=== PATIENT | female | born 1935 | race Caucasian/White ===

== ENCOUNTER 2024-06-25 10:55 | Inpatient (IN) | payer MEDICARE, BC ==
[~2024-06-25] VITALS: Ht 180.3 cm; Wt 56.5 kg
[~2024-06-25 10:55] MED LIST: B COMPLEX #11 TA1 PO; CALCIUM 600MG+D1 TAB PO; ESTRACE0.1 MG/GM VG; EXCEDRIN1 TAB PO; LASIX 20MG TABL20 MG PO; LEVBID0.375 MG PO; MIRTAZAPINE7.5 MG PO; MULTI VITAMINS1 TAB PO; NATURAL POTASS595 MG PO; PRILOTC; PROLIA60 MG/ML SQ; ULTRAM 50MG TAB50 MG PO; VITAMIN C500 MG PO; ZYRTEC 10MG10 MG PO
[2024-06-25 12:12] LABS: ALBUMIN 3.6 g/dL (3.4-4.8); BILIRUBIN,TOTAL 1.1 mg/dL (0.2-1.2); CALCIUM 9.2 mg/dL (8.4-10.2); CREATININE, serum 1.31 mg/dL (0.57-1.11); POTASSIUM 3.5 mEq/L (3.5-4.5); TOTAL PROTEIN 7.5 g/dl (6.2-8.1)
[2024-06-25 12:14] LABS: HEMOGLOBIN 11.6 g/dl (12.5-16.0); MEAN CELL VOLUME 101 fl (80.0-100.0); MEAN CORPUSCULAR HEMOGLOBIN 34 pg (27-31); MEAN CORPUSCULAR HGB CONC 34 g/dl (33.0-37.0); MEAN PLATELET VOLUME 10.8 fl (7.4-10.4); PLATELET COUNT 108 K/mm3 (130-400); RED BLOOD COUNT 3.37 M/mm3 (4.10-5.30); REDCELL DISTRIBUTION WIDTH-CV 17.8 % (11.5-14.5)
[2024-06-25] MEDS ORDERED: NS 1,000 ML IV ONE (12:30)
[2024-06-25] MEDS ORDERED: cefTRIAXone 1 G in Water For Injection,Sterile 10 ML IV ONE (12:30)
[2024-06-25 12:50] LABS: ANISOCYTOSIS 1+; BAND 32 % (0-10); LYMPHOCYTE 2 % (20.0-51.0); NEUTROPHILS 65 % (42.0-75.2); NUCLEATED RED BLOOD CELL 1 (0-6); PLATELET ESTIMATE NORMAL (NORMAL)
[2024-06-25 12:51] LABS: OVALOCYTES 1+
[2024-06-25 12:52] LABS: PH 5.5 (5.0-8.5); URINE APPEARANCE TURBID (CLEAR/HAZY); URINE BLOOD 3+ (NEGATIVE); URINE COLOR Dark Yellow (YELLOW); URINE GLUCOSE NEGATIVE (NEGATIVE); URINE KETONE NEGATIVE (NEGATIVE); URINE NITRATE NEGATIVE (NEGATIVE); URINE PROTEIN(semi-quant) 2+ (NEGATIVE); URINE UROBILINOGEN 0.2 E.U/dL (0.2-1.0)
[2024-06-25] MEDS ORDERED: Ondansetron 4 MG/2 ML VIAL IV ONE (13:15)
[2024-06-25 13:22] LABS: URINE BACTERIA MANY /hpf (NONE SEEN); URINE RBC >50 /hpf (0-2); URINE WBC >50 /hpf (0-2)
[2024-06-25 13:23] LABS: COLLECTION METHOD CLEAN CATCH
[2024-06-25] MEDS ORDERED: Ondansetron 4 MG/2 ML VIAL IV PRN (14:00)
[2024-06-25] MEDS ORDERED: Lidocaine 4% Topical Patch TP SCH (14:00)
[2024-06-25] MEDS ORDERED: HYOSCYAMINE 0.375 MG PO PRN (14:00)
[2024-06-25] MEDS ORDERED: Polyethylene Glycol 3350 17 GM PDS PO PRN (14:00)
[2024-06-25] MEDS ORDERED: NS 1,000 ML IV SCH (14:00)
[2024-06-25] MEDS ORDERED: cefTRIAXone 1 G in Water For Injection,Sterile 10 ML IV SCH (14:00)
[2024-06-25] MEDS ORDERED: Docusate Sodium 100 MG CAP PO PRN (14:00)
[2024-06-25] MEDS ORDERED: Acetaminophen 325 MG TAB PO PRN (14:00)
[2024-06-25] MEDS ORDERED: traMADol 50 MG TAB PO SCH (14:00)
[2024-06-25 15:30] VITALS: BP 110/56; PULSE 95; TEMP 101.7
--- NOTE | 2024-06-25 15:30 | NUR ---
arrived n unit per stretcher, alert but is confused at this time and doesn not even really follow commands, daughter at bedside
[2024-06-25] MEDS ORDERED: Polyethylene Glycol 3350 17 GM PDS PO SCH (15:48)
[2024-06-25] MEDS ORDERED: Heparin 5,000 UNITS/ML 1 ML VIAL SQ SCH (16:00)
[2024-06-25] MEDS ORDERED: PROBIOTIC BLEN1 EACH PO (16:07)
[2024-06-25] MEDS ORDERED: TAMOXIFEN CITRA20 MG PO (16:08)
[2024-06-25] MEDS ORDERED: MIRTAZAPINE7.5 MG PO (16:08)
[2024-06-25] MEDS ORDERED: COLESTID 1GM1 G PO (16:09)
[2024-06-25 16:38] VITALS: BP_SYST 110
--- NOTE | 2024-06-25 16:39 | NUR ---
Juan F, RN nursing supervisor shellfish farming notified of MEWS score of 3, all vitals relayed to her
--- NOTE | 2024-06-25 17:00 | NUR ---
physical assessment completed, see intervention for further info, has 1cm stage II pressure ulcer to left buttock, this was marked and pictures taken and sent to [facility], mepilex dressing placed, has skin tears open on left lower extremity and aquacel dressing placed
--- NOTE | 2024-06-25 17:30 | NUR ---
appears to be sleeping, admission assessment completed by daughter
--- NOTE | 2024-06-25 18:59 | NUR ---
sitting up eating supper, bedside shift report given to AUBREE Gross
[2024-06-25 20:00] VITALS: BP_SYST 96
[2024-06-25] MEDS ORDERED: Docusate Sodium 100 MG CAP PO SCH (21:00)
[2024-06-25] MEDS ORDERED: Famotidine 20 MG TAB PO SCH (21:00)
[2024-06-25 21:47] VITALS: BP 96/45; PULSE 68; TEMP 96.4
--- NOTE | 2024-06-25 23:08 | NUR ---
patient lyin gin bed, alert and oriented x4, with occasional forgetfullness. denies chest pain and shortness of breath. IV in LAC is patent, site CDI with NS running at 125 ml/hr. pt denies pain and refuses scheduled tramadol at this time. small open ulcer with blanchable surrounding redness noted on left upper buttock with mepilex dressing applied, right mccord skin tear with mepilex dressing, all CDI. frequent repositioning interventions in place, pt agreeable. lidocaine patch to lower back. fall precautions in place, call light within reach. pt with slight diaphoresis. pt has no further needs, questions or concerns at this time.
[2024-06-26] VITALS (162 sets, daily range): BP systolic 76–145; BP diastolic 36–72; PULSE 69–88; TEMP 97.5–102.4; O2SAT 74–100
[2024-06-26 07:06] LABS: HEMOGLOBIN 10.8 g/dl (12.5-16.0); MEAN CELL VOLUME 100 fl (80.0-100.0); MEAN CORPUSCULAR HEMOGLOBIN 34 pg (27-31); MEAN CORPUSCULAR HGB CONC 34 g/dl (33.0-37.0); MEAN PLATELET VOLUME 11.6 fl (7.4-10.4); PLATELET COUNT 94 K/mm3 (130-400); RED BLOOD COUNT 3.18 M/mm3 (4.10-5.30); REDCELL DISTRIBUTION WIDTH-CV 18.2 % (11.5-14.5)
[2024-06-26 07:16] LABS: HEMATOCRIT 31.9 % (37.0-47.0)
[2024-06-26 07:26] LABS: CALCIUM 8.1 mg/dL (8.4-10.2); CREATININE, serum 1.16 mg/dL (0.57-1.11); POTASSIUM 3.6 mEq/L (3.5-4.5)
--- NOTE | 2024-06-26 08:00 | NUR ---
PATIENT ALERT AND ORIENTED X4. PATIENT REPORTS PAIN 9/10. PATIENT ON 2L 02 N/C. PATIENT FAMILY AT BEDSIDE. FLUIDS INFUSING PER EMAR. CALL LIGHT WITHIN REACH. BED ALARM ON.
[2024-06-26 08:18] LABS: ANISOCYTOSIS 1+; BAND 28 % (0-10); LYMPHOCYTE 7 % (20.0-51.0); NEUTROPHILS 64 % (42.0-75.2); PLATELET ESTIMATE DECREASED (NORMAL)
[2024-06-26 08:19] LABS: OVALOCYTES 1+
[2024-06-26 08:20] LABS: BURR CELLS 2+
[2024-06-26] MEDS ORDERED: NS 500 ML IV SCH ×2 (10:00→11:15)
--- NOTE | 2024-06-26 10:00 | NUR ---
patient alert and oriented x3. patient on 2l /. patient blood pressure is low. hospitalist notified. bolus will be given. patient denies dizziness or headaches, denies soa. call light within reach. bed at lowest positon.
--- NOTE | 2024-06-26 10:32 | NUR ---
Initial visit; Patient had visitors and was happy to say that she is feeling great and thanked Plastic Cnc Machine Operator for offering God's blessings and for saying that she looked great. Plastic Cnc Machine Operator wished her well in hopes she will be discharged soon.
--- NOTE | 2024-06-26 11:11 | NUR ---
SW was provided with copy of patient's living will and DPOA documents from daughter. Advanced Directives placed on chart.
--- NOTE | 2024-06-26 11:15 | NUR ---
patient alert and oriented x3. patient having low blood pressures and denies dizziness, soa, frausto at this time. patient call light within reach. bed alarm on.
[2024-06-26] MEDS ORDERED: NS 1,000 ML IV SCH (12:15)
[2024-06-26] MEDS ORDERED: cefTRIAXone 1 G in Water For Injection,Sterile 10 ML IV SCH (12:30)
--- NOTE | 2024-06-26 12:50 | NUR ---
patient reports ARITA has gone away. patient remains with low blood pressure after bolus x2 and fluids infusing. patient will be transfer to ICU.
--- NOTE | 2024-06-26 12:55 | NUR ---
Forest Ranger Technician met with patient to discuss discharge planning. Patient lives at [facility] in [facility] and sees Dr. Lawler for primary care. Patient gets medications from [facility] with no difficulties. Patient uses a walker for ambulation and is independent with ADLS. Patient is currently on oxygen, however does not use it at baseline. Patient stated her daughter, Esthela (ph#[phone]) is her DPOA-HC and will be returning to the hospital soon. SW discussed discharge planning and patient stated she is open to either returning to her [place] apartment or going to [facility] if rehab is recommended. SW attempted to call Esthela and left a message. SW reviewed PT/OT evaluations which recommend SNF. CARMEN contacted Yaritza at [facility] and faxed referral. Discharge Plan: [facility] SNF
[2024-06-26] MEDS ORDERED: LR 1,000 ML IV ONE (13:00)
--- NOTE | 2024-06-26 13:30 | NUR ---
patient taken to ICU. report given at bedside. patient IV discontinued/ damaged during transport. patient nurse at bedside.
--- NOTE | 2024-06-26 13:40 | NUR ---
Arrived to the unit from the medical floor. Patient alert and oriented upon arrival. Cooperative with cares. Patient slightly hypotensive, however remains asymptomatic. LR bolus initiated per hospitalist orders. Call light left within reach.
--- NOTE | 2024-06-26 19:30 | NUR ---
Recevied report from Seema Botello RN. Pt is resting in bed with bed in low position and bed alarms on and call light within reach. Vitals are stable at this time. IVF's are running at this time. Will continue with pt care.
[2024-06-27] VITALS (47 sets, daily range): BP systolic 99–144; BP diastolic 61–86; PULSE 78–96; TEMP 98.4–99.5; O2SAT 67–99
[2024-06-27 05:05] LABS: MEAN CELL VOLUME 98 fl (80.0-100.0); MEAN CORPUSCULAR HGB CONC 35 g/dl (33.0-37.0); PLATELET COUNT 88 K/mm3 (130-400); RED BLOOD COUNT 2.56 M/mm3 (4.10-5.30); REDCELL DISTRIBUTION WIDTH-CV 18.1 % (11.5-14.5)
[2024-06-27 05:19] LABS: CALCIUM 6.9 mg/dL (8.4-10.2); CREATININE, serum 0.86 mg/dL (0.57-1.11); POTASSIUM 3.4 mEq/L (3.5-4.5)
[2024-06-27 05:21] LABS: HEMOGLOBIN 8.7 g/dl (12.5-16.0); MEAN CORPUSCULAR HEMOGLOBIN 34 pg (27-31)
[2024-06-27 05:22] LABS: HEMATOCRIT 25.1 % (37.0-47.0)
[2024-06-27 06:30] LABS: GRAN # 5.7 K/mm3 (1.4-6.5); LYMPH # 0.3 K/mm3 (1.2-3.4); LYMPH % 4.6 % (20.0-51.0); MONO # 0.4 K/mm3 (0.1-0.6); MONO % 6.2 % (1.7-9.3)
--- NOTE | 2024-06-27 06:36 | NUR ---
Pt had an uneventful night and slept most of the night. Vitals were stable throughout the night. IVF's runnning at this time. Used the bed rhodes when the pt needed to go to the bathroom, but needed prompted to go to the bathroom. Pt repositioned frequently. Levophed was never started throughout the night. Pt ON 1L O2 via NC. Will give report to day shift nurse.
[2024-06-27] MEDS ORDERED: Zinc Oxide 20% Ointment 28 GM TUBE TOP PRN (09:00)
--- NOTE | 2024-06-27 09:03 | NUR ---
REPORT RECEIVED FROM OUTGOING RN. BEDSIDE REPORT COMPLETED AND ALL MEDICATIONS CHECKED PT RESTING IN BED COMFORTABLY.
--- NOTE | 2024-06-27 09:23 | NUR ---
PT IN BED RESTING. UPPON ASSESMENT PT NOTED TO BE SLIGHTLY CONFUSED ON NEURO ASSESMENT. PT ORIENT TO PERSON AND EVENT BUT NOT PLACE OR TIME. PUPALS PEERLA 4CM BRISK. STONG HAD EXTERMINATOR TERMITE WITH GOOF COMMAND FOLLOWING. RES ASSESMENT SHOWS CLEAR LUNG SOUNDS WITH GOOD CAP REFIL IN ALL EXTEREMITIES. PT NOTED TO BE SLIGHTLY WARM WITH SLIGHT LOW GRADE FEVER OF 99.2 CARDIAC ASSESMENT SHOWS GOOD BLOOD PRESSURES WITH NO DEFICITS IN HEART TONES OR CIRCULATION. GI SYSTEMS IN TACCT PT VOIDING AND HAVING BOWEL MOVEMENTS. PT REFUSED MORNING MIRALAX SHE IS HAVING SLIGHTLY LOOSE STOOLS. URINE NOTED TO HAVE SLIGHT HAZE AND CLUD TINGE. SKIN ASSESMENT SHOWS TWO AREAS OF CONCERN. ONE 2X2 CM STAGE II SLIGHTLY RIGHT OF THE COCCYS. THERE IS SLIGHT INVOLVMENT IN THE FAT LATER WITH DISTINCT MARGINS. ON THE RIGHT LOWER LEG SHE HAS THREE SMALL SPOTS OF SKIN BREAK DOWN FROM A SKIN TEAR.
[2024-06-27] MEDS ORDERED: Calcium Carbonate 500 MG TAB PO SCH (10:00)
[2024-06-27] MEDS ORDERED: Potassium Chloride 20 mEq/100 mL IV Soln IV SCH (10:00)
--- NOTE | 2024-06-27 11:48 | NUR ---
REPORT CALLED TO SURGICAL LAYOUT TECHNICIAN. RN WAS GRACIOUS AND LIZETTE TO TALK TO. REPORT GIVEN WITH NO QUESTIONS. PT TRANSFERED TO FLOOR VIA . WHILE GETTING PT TO WC RN APPLIED ZINC TO SACRAL WOUND. PT TRANSFERED TO FLOOR BY ICU LAYOUT TECHNICIAN. SKIN ASSESMENT DONE WITH SURGICAL LAYOUT TECHNICIAN
--- NOTE | 2024-06-27 12:02 | NUR ---
CARMEN notes pt is transferred to the surgical floor. CARMEN faxed updates to [facility]. Discharge Plan: SNF
--- NOTE | 2024-06-27 12:30 | NUR ---
PATIENT ADMITED INTO ROOM 346 FROM ICU. A&O X2-3, HX OF UNDERLINED DEMENTIA. VSS. NO COMPLAINTS. IV FLUIDS INFUSING VIA PUMP INTO LUE PICC LINE. RUE RESTRICTION DUE TO HX OF MASTECTOMY. ICU REPORTS PATIENT FALLING AT [facility], POSITIVE UTI, AND UROSEPSIS. 2 MAX ASSIST. PT/OT CONSULTED. SPECIALTY MATRESS & HEEL PROTECTORS. SEE SHIFT ASSESSMENT FOR SKIN ISSUES. WOUND CARE CONSULTED. HEAD TO TOE ASSESSMENT COMPLETE. ORIENTED TO ROOM. CALL LIGHT IN REACH. BED ALARM ON. DAUGHTER AT BEDSIDE.
--- NOTE | 2024-06-27 20:47 | NUR ---
Patient just up to the BSC with 2 person assist with gaitbelt, unsteady gait, assessed at this time, see shift assessment, able to tell this nurse where she's at, date of and the reason why she's here, denies pain or discomfort, with PICC to left upper arm NS currently infusing at 100cc/hr, with oxygen via nasal cannula at 2LPM, denies SOA, noted S2 pressure sore on bottom, applied zinc oxide as per order, applied boots to reddened heels, denies further needs, call light and personal items within reach, will continue to monitor.
[2024-06-27] MEDS ORDERED: traMADol 50 MG TAB PO SCH (21:00)
[2024-06-28] VITALS (7 sets, daily range): BP systolic 110–177; BP diastolic 71–84; PULSE 79–96; TEMP 97.9–99.5
--- NOTE | 2024-06-28 00:18 | NUR ---
Patient incontinent of urine at this time, gunnar provided, repositioned patient to her right side, applied SCD's, denies further needs.
--- NOTE | 2024-06-28 03:58 | NUR ---
Patient up to the BSC at this time with 2 person assist with gaibelt, voided with dribbling noted, repositioned back to bed and laid on her left side at this time, SCD's on, heel boots on, denies further needs.
--- NOTE | 2024-06-28 06:09 | NUR ---
Patient up to the BSC at this time, reports pain to both legs, medicated with tylenol, on 1LPM at this time, satting 94%.
[2024-06-28 07:01] LABS: MEAN CELL VOLUME 97 fl (80.0-100.0); MEAN CORPUSCULAR HGB CONC 35 g/dl (33.0-37.0); MEAN PLATELET VOLUME 11.8 fl (7.4-10.4); PLATELET COUNT 88 K/mm3 (130-400); RED BLOOD COUNT 2.65 M/mm3 (4.10-5.30); REDCELL DISTRIBUTION WIDTH-CV 18.4 % (11.5-14.5)
[2024-06-28 07:06] LABS: HEMATOCRIT 25.8 % (37.0-47.0); HEMOGLOBIN 8.9 g/dl (12.5-16.0); MEAN CORPUSCULAR HEMOGLOBIN 34 pg (27-31)
[2024-06-28 07:15] LABS: CALCIUM 7.3 mg/dL (8.4-10.2); CREATININE, serum 0.77 mg/dL (0.57-1.11); POTASSIUM 3.4 mEq/L (3.5-4.5)
--- NOTE | 2024-06-28 08:00 | NUR ---
PATIENT IS A&O X3, HAS KNOWN HX OF UNDERLINED DEMENTIA. VSS. PATIENT NOW ON RA WITH SATS IN MID TO LOW 90'S. NO C/O SOA OR NAUSEA. PATIENT DOES REPORTS PAIN IN BACK/BOTTOM/RLE, FEELS STIFF FROM BEING IN BED ALL NIGHT. GAVE SCHEDULED LIDO PATCH & ULTRAM, WELL , PRN TYLENOL WITH AM MEDS. TOLERATING DIET, JUST DOESN'T EAT MUCH AT ONE TIME. IV FLUIDS INFUSING VIA PUMP INTO LEFT PICC. 2 ASSIST TO BEDSIDE CHAIR. PATIENT IS WEAK & UNSTEADY ON FEET. PATIENT HAS HAD REPORTED FALLS AT [facility]. SEE SKIN ISSUES ON ASSESSMENT. PT/OT CONSULTED. PATIENT HAS SPECIALTY MATRESS INPLACE & HEEP PROTECTORS. ENCOURAGING ACTIVITY & TURNING. PLAN IS TO DISCHARGE TO SNF IN THE UP COMING DAYS. NO OTHER NEEDS AT THIS TIME. CALL LIGHT IN REACH. CHAIR ALARM ON.
[2024-06-28 10:06] LABS: BAND 60 % (0-10); LYMPHOCYTE 9 % (20.0-51.0); METAMYELOCYTE 2 % (0-0); NEUTROPHILS 28 % (42.0-75.2); PLATELET ESTIMATE DECREASED (NORMAL)
[2024-06-28 10:10] LABS: OVALOCYTES 1+; TEAR DROP CELLS 1+
[2024-06-28 10:12] LABS: ANISOCYTOSIS 1+; SCHISTOCYTES 1+
[2024-06-28] MEDS ORDERED: Magnesium Oxide 400 MG TAB PO SCH (10:27)
--- NOTE | 2024-06-28 10:36 | NUR ---
pass worker met with patient and her daughter to discuss discharge plan. SW explained [facility] will be holding a bed for patient. SW reviewed the IM from [employer] with patient and her daughter. Patient and daughter understood. No questions or concerns. Patient signed form. SW made copy, placed original in chart and provided copy to patient. CARMEN was notified Dr. Almeida is looking at discharge tomorrow, 06/29/24. CARMEN contacted [facility] and they expressed they have a bed available for patient and could accept tomorrow. Discharge plan: [facility]
--- NOTE | 2024-06-28 15:21 | NUR ---
photographic process worker secure emailed updates to [facility]. Discharge plan: [facility] - 06/29/24
[2024-06-29 00:02] VITALS: BP_SYST 153
[2024-06-29 04:00] VITALS: BP_SYST 170
[2024-06-29 04:15] VITALS: BP 170/84; PULSE 87; TEMP 99.8
[2024-06-29 07:18] LABS: CALCIUM 8.2 mg/dL (8.4-10.2); CREATININE, serum 0.73 mg/dL (0.57-1.11); POTASSIUM 4.2 mEq/L (3.5-4.5)
[2024-06-29 07:56] VITALS: BP 135/81; PULSE 80; TEMP 97.9
[2024-06-29 08:00] VITALS: BP_SYST 135
--- NOTE | 2024-06-29 08:18 | NUR ---
SHIFT ASSESSMENT COMPLETE. VSS. PATIENT AWAKE IN BED EATING BREAKFAST. PATIENT ON 1L OF O2 NC STATING AT 96%. PATIENTS BASELINE IS ROOM AIR, REOMOVED O2 AND WILL RECHECK O2 TO CHECK NEED FOR O2. PATIENT REPORTS NO PAIN. PICC LINE TO RIGHT UPPER ARM FLUSHING AND HAS GOOD BLOOD RETURN, DRESSING NEEDS REPLACED DUE TO SOME BLOOD DRAINAGE THAT HAPPENED ON OVER STUDENT SUCCESS ADVISOR. PATIENT IS SUPPOSED TO POSSIBLY DISCHARGE TODAY AND PICC LINE BE REMOVED, DRESSING CHANGE PENDING DC ORDERS. PATIENT HAS NO OTHER COMPIANTS AT THIS TIME. BED ALARM ON AND CALL LG IN REACH
[2024-06-29] MEDS ORDERED: TYLENOL 325MG325 MG PO (09:01)
[2024-06-29] MEDS ORDERED: OSCAL 500 TAB500 MG PO (09:18)
[2024-06-29] MEDS ORDERED: K-DUR20 MEQ PO (09:19)
[2024-06-29] MEDS ORDERED: CEFTIN500 MG PO (09:20)
--- NOTE | 2024-06-29 10:14 | NUR ---
SW was notified that patient is set for discharge, faxed over packet to [facility] for review-pending transporation arrangements.
--- NOTE | 2024-06-29 10:28 | NUR ---
SW received notification from [facility] intake member service representative to have prescriptions sent to [facility] out of [facility] & CBC panel complete prior to discharge --nurse was notified with these updates.Transportation will arrive for patient around 1130am pending lab.
[2024-06-29] MEDS ORDERED: ULTRAM 50MG TAB50 MG PO (10:38)
[2024-06-29 10:57] LABS: MEAN CELL VOLUME 97 fl (80.0-100.0); MEAN CORPUSCULAR HGB CONC 35 g/dl (33.0-37.0); MEAN PLATELET VOLUME 12.1 fl (7.4-10.4); PLATELET COUNT 108 K/mm3 (130-400); RED BLOOD COUNT 2.88 M/mm3 (4.10-5.30); REDCELL DISTRIBUTION WIDTH-CV 18.2 % (11.5-14.5)
[2024-06-29 11:00] LABS: HEMATOCRIT 27.8 % (37.0-47.0); HEMOGLOBIN 9.7 g/dl (12.5-16.0); MEAN CORPUSCULAR HEMOGLOBIN 34 pg (27-31)
== END 2024-06-29 11:59 | DRG 871 ==
LOC: COL.ER 10:55 → MEDICAL 13:55 → ICU 06-26 13:44 → SURG 06-27 11:55
PROVIDERS: Internal Medicine; Physician Assistant; ADMIT Internal Medicine
PROC: 02HV33Z Insertion of Infusion Device into Superior Vena Cava, Percutaneous Approach (ICD-10-PCS; principal; 2024-06-28)
DX: A41.51 Sepsis due to Escherichia coli [E. coli] (principal); E43 Unspecified severe protein-calorie malnutrition; L89.153 Pressure ulcer of sacral region, stage 3; J96.01 Acute respiratory failure with hypoxia; N39.0 Urinary tract infection, site not specified; N17.9 Acute kidney failure, unspecified; E87.20 Acidosis, unspecified; Z68.1 Body mass index [BMI] 19.9 or less, adult; G72.81 Critical illness myopathy; I10 Essential (primary) hypertension; Z20.822 Contact with and (suspected) exposure to COVID-19; R29.6 Repeated falls; G89.29 Other chronic pain; M41.85 Other forms of scoliosis, thoracolumbar region; W18.39XA Other fall on same level, initial encounter; D53.9 Nutritional anemia, unspecified; M54.50 Low back pain, unspecified; E87.6 Hypokalemia; E83.51 Hypocalcemia; I95.9 Hypotension, unspecified; Z85.3 Personal history of malignant neoplasm of breast; Z90.13 Acquired absence of bilateral breasts and nipples; Z79.899 Other long term (current) drug therapy; Y93.89 Activity, other specified; Y92.89 Other specified places as the place of occurrence of the external cause; Z90.710 Acquired absence of both cervix and uterus; Z87.891 Personal history of nicotine dependence; Z23 Encounter for immunization
CPT/HCPCS: A9270; C1751; J0696; J1644; J2405; J3480; J7030; J7040; J7120